=== PATIENT | female | born 1970 | race Caucasian/White ===

== ENCOUNTER 2016-09-08 18:04 | Emergency (ER) | payer OTHER ==
--- NOTE | ~2016-09-08 | CR230 ---
[facility] A Service [facility] RADIOLOGY TEXT RESULTS PATIENT: STUART TEJEDA LOCATION: SED : 72 UNIT #: [id number] AGE: [address]: Connie Burt APRN SEX: F ORDER DR: [id number] [place] [id number] E MR#: [id number] Acc #: [id number] NAME: STUART TEJEDA. : 1970 SEX: F STUDY DATE/TIME: 09/08/2016 17:55 UNIT: SED ROOM: STUDY DESCRIPTION: CR Shoulder Min 2 View Rt Attending Physician: Connie Burt A.P.R.N. Ordering Physician: Connie Carvalho A.P.R.N. Primary Care Physician: Ama Shah M.D. MEDICAL IMAGING REPORT This report is preliminary unless electronic signature is present. EXAM Right shoulder, 3 views HISTORY Shoulder pain after fall today FINDINGS AP view with internal and external rotation of the shoulder girdle shows satisfactory relationship of the humeral head and glenoid fossa. The joint space is normal. There is no identifiable fracture or dislocation or bony destructive process about the shoulder girdle anatomy. The acromioclavicular joint is normal. There is no radiopaque foreign body in the region. IMPRESSION Normal shoulder. Dictated by... Giovany Fagan M.D. THIS IS AN ELECTRONICALLY VERIFIED REPORT Giovany Fagan M.D. at 09/09/2016 11:30 PM DFLyudmila/jemma TD: 09/09/2016 12:44 JOB #: [id number] MEDICAL IMAGING REPORT [facility] A Service [facility] RADIOLOGY TEXT RESULTS PATIENT: STUART TEJEDA LOCATION: SED : 71 UNIT #: [id number] AGE: [address]: Connie Burt APRN SEX: F ORDER DR: Page 1 of 1
--- NOTE | ~2016-09-08 | CR157 ---
[facility]. [facility] A Service of [facility] & [facility] RADIOLOGY TEXT RESULTS PATIENT: STUART TEJEDA LOCATION: SED : 71 UNIT #: [id number] AGE: [address]: Connie Burt APRN SEX: F ORDER DR: [id number] [address] [address] [id number] E MR#: [id number] Acc #: [id number] NAME: STUART TEJEDA. : 1970 SEX: F STUDY DATE/TIME: 09/08/2016 17:55 UNIT: SED ROOM: STUDY DESCRIPTION: CR Humerus Min 2 View Rt Attending Physician: Connie Burt A.P.R.N. Ordering Physician: Connie Carvalho A.P.R.N. Primary Care Physician: Ama Shah M.D. MEDICAL IMAGING REPORT This report is preliminary unless electronic signature is present. EXAM Right humerus 2 views HISTORY Arm pain and limited range of motion after injury today. FINDINGS There is no evidence of fracture, dislocation, or radiopaque foreign body. No focal bone lesions are seen. IMPRESSION Normal humerus. Dictated by... Giovany Fagan M.D. THIS IS AN ELECTRONICALLY VERIFIED REPORT Giovany Fagan M.D. at 09/09/2016 11:30 PM DFL/to TD: 09/09/2016 12:39 JOB #: [id number] MEDICAL IMAGING REPORT Page 1 of 1
[~2016-09-08 18:04] MED LIST: IRON45 MG; LAMICTAL; LITHIUM; TOPAMAX200 MG; VIT C-ROSE HIP500 MG
== END 2016-09-08 19:25 | disposition home or self-care (01) ==
LOC: SED 18:04
DX: S40.012A Contusion of left shoulder, initial encounter (principal); W19.XXXA Unspecified fall, initial encounter; Y92.830 Public park as the place of occurrence of the external cause
CPT/HCPCS: 73030; 73060; 99284